=== PATIENT | male | born 1950 | race Caucasian/White ===

== ENCOUNTER → 2016-08-30 | Outpatient (CLI) | payer MEDICARE ==
--- NOTE | 2016-08-30 09:46 | Diagnostic Imaging Report ---
PROCEDURE: US abdomen complete. TECHNIQUE: Multiple real-time grayscale images were obtained over the abdomen in various projections. INDICATION: The liver is of normal size and echogenicity. It has two small cysts. The largest is 1.5 cm. No solid hepatic masses are seen. The bile ducts are not dilated. The common bile duct diameter is 4.0 mm The gallbladder is within normal limits. Hepatopetal flow is present in the main portal vein. The aorta is within normal limits. The inferior vena cava was obscured by bowel gas, and only part of it could be visualized. Common iliac arteries are visualized and negative. The pancreas cannot be adequately visualized for assessment. Right kidney is 10.7 cm in length. The left is 11.6 cm in length. There is no hydronephrosis. Questionable tiny nonobstructing stone is seen in the midpole of the left kidney. The spleen is measuring about 8.6 cm. IMPRESSION: 1. A few small simple hepatic cysts. 2. Possible small nonobstructing left renal calculus. Dictated by: Dictated on workstation # [id number]
== END ==
LOC: RAD 08:25
PROVIDERS: ATTEND Family Medicine
DX: I71.4 Abdominal aortic aneurysm, without rupture (principal); K76.89 Other specified diseases of liver
CPT/HCPCS: 76700